=== PATIENT | male | born 1985 ===

== ENCOUNTER 2017-11-18 02:27 | Emergency (ER) | payer SELFPAY ==
[~2017-11-18] VITALS: Ht 182.9 cm; Wt 86.6 kg
[2017-11-18] MEDS ORDERED: Prednisone20 MG PO (02:50)
[2017-11-18] MEDS ORDERED: Permethrin60 GM TOP (02:50)
== END 2017-11-18 03:37 | disposition home or self-care (01) ==
LOC: ER 02:27
DX: R21 Rash and other nonspecific skin eruption (principal); F17.200 Nicotine dependence, unspecified, uncomplicated
CPT/HCPCS: 99282; Q0163

== ENCOUNTER 2017-11-27 23:26 | Emergency (ER) | payer SELFPAY ==
[~2017-11-27] VITALS: Ht 182.9 cm; Wt 86.2 kg
[~2017-11-27 23:26] MED LIST: Permethrin60 GM TOP; Prednisone20 MG PO
== END 2017-11-28 02:12 | disposition left against medical advice (07) ==
LOC: ER 23:26
DX: Z53.21 Procedure and treatment not carried out due to patient leaving prior to being seen by health care provider (principal)